=== PATIENT | female | born 1980 | race Hispanic/Latino ===

== ENCOUNTER 2021-04-16 18:50 | Emergency (ER) | payer SELFPAY ==
[~2021-04-16] VITALS: Ht 149.9 cm; Wt 69.6 kg
[2021-04-16] MEDS ORDERED: VENTOLIN HFA18 GM INH ×2 (19:55→21:29)
[2021-04-16] MEDS ORDERED: AZITHROMYCIN250 MG PO ×2 (19:55→21:29)
[2021-04-16] MEDS ORDERED: GUAIFEN-CODEINE5 ML PO (19:55)
[2021-04-16] MEDS ORDERED: PREDNISONE20 MG PO ×2 (19:55→21:29)
== END 2021-04-16 20:12 | disposition home or self-care (01) ==
LOC: FSED 19:30
DX: J06.9 Acute upper respiratory infection, unspecified (principal)
CPT/HCPCS: 83518; 87400; 99283

== ENCOUNTER 2021-04-24 12:11 | Emergency (ER) | payer SELFPAY ==
[~2021-04-24] VITALS: Ht 149.9 cm; Wt 69.4 kg
[~2021-04-24 12:11] MED LIST: AZITHROMYCIN250 MG PO; GUAIFEN-CODEINE5 ML PO; PREDNISONE20 MG PO; VENTOLIN HFA18 GM INH
== END 2021-04-24 16:51 | disposition home or self-care (01) ==
LOC: ER 12:15
DX: U07.1 COVID-19 (principal); R06.02 Shortness of breath; R05.9 Cough, unspecified
CPT/HCPCS: 71045; 99283